=== PATIENT | female | born 1990 | race Caucasian/White ===

== ENCOUNTER 2021-04-01 12:15 | Emergency (ER) | payer OTHER ==
[~2021-04-01 12:15] MED LIST: AMOXICILLIN500 M1 PO; AMOXICILLIN875 MG PO; CYCLOBENZAPRINE10 MG PO; DELSYM30 MG/5 ML PO; FLONASE 0.05% N16 GM; KEFLEX CAP 500500 MG PO; MACROBID 100 M100 MG PO; NAPROSYN500 MG PO; PROTONIX40 MG PO; PYRIDIUM100 MG PO; PYRIDIUM200 MG PO; ZOFRAN4 MG PO; ZYRTEC10 MG PO
[2021-04-01] MEDS ORDERED: NAPROXEN500 MG PO (15:05)
== END 2021-04-01 15:12 | disposition home or self-care (01) ==
LOC: ER1 12:15
DX: M17.11 Unilateral primary osteoarthritis, right knee (principal); E78.5 Hyperlipidemia, unspecified; I10 Essential (primary) hypertension
CPT/HCPCS: 73564; 93971; 99284